=== PATIENT | male | born 1985 | race Two or more races ===

== ENCOUNTER 2016-12-16 21:16 | Emergency (ER) | payer BC ==
[2016-12-16] MEDS ORDERED: Ibuprofen TAB* 400 MG PO ONE (21:48)
[2016-12-16 22:01] VITALS: BP 136/70
--- NOTE | 2016-12-16 22:33 | UC ---
Hand/Wrist HPI - HPI Summary HPI Summary: The patient comes in today for: 1. Right wrist pain: Onset: 3 hours ago. Palliative/provocative: See below Quality: dull Region: distal ulnar at the wrist. Severity: 6/10. Initially, 8/10 Time: Constant. Associated symptoms: Event: While he was curling 65 pounds in his right hand at the gym, he felt something "pop" along the distal ulnar. He was standing. After the "pop" he set the barbell down and walked on the treadmill for 30 minutes. He went home, showered and came here. No Rx or ice applied. With supination, and flexion is the worse movement. Pronation and extension is the least of a problem. No consistent/persistent numbness. Previous problems: None. * - History Of Current Complaint Stated Complaint: RIGHT WRIST INJURY Time Seen by Provider: 12/16/16 21:46 Hx Obtained From: Patient - Allergies/Home Medications Allergies/Adverse Reactions: Allergies Allergy/AdvReac Type Severity Reaction Status Date / Time Penicillins [PCN] Allergy Severe Rash Verified 12/16/16 21:44 Home Medications: Home Medications Nutritional Supplements [Creatine] 750 mg PO DAILY 12/16/16 [History Confirmed 12/16/16] PMH/Surg Hx/FS Hx/Imm Hx Previously Healthy: Yes Endocrine History Of: Denies: Diabetes, Thyroid Disease, Hyperthyroidism, Hypothyroidism, Dyslipidemia Cardiovascular History Of: Denies: Cardiac Disorders, Hypertension, Pacemaker/ICD, Myocardial Infarction , Congestive Heart Failure, Atrial Fibrillation, Deep Vein Thrombosis, Bleeding Disorders Respiratory History Of: Denies: COPD, Asthma, Bronchitis, Pneumonia, Pulmonary Embolism GI/ History Of: Denies: Gastroesophageal Reflux, Ulcer, Gastrointestinal Bleed, Gall Bladder Disease, Kidney Stones, Diverticulitis, Renal Disease, Urosepsis Neurological History Of: Denies: TIA, CVA, Dementia, Seizures, Migraine Psychological History Of: Denies: Anxiety, Depression, Bipolar Disorder, Schizophrenia, Post Traumatic Stress Disorder Cancer History Of: Denies: Lung Cancer, Colorectal Cancer, Breast Cancer, Prostate Cancer, Cervical Cancer Other History Of: Negative For: HIV, Hepatitis B, Hepatitis C, Anticoagulant Therapy - Surgical History Surgical History: Yes Surgery Procedure, Year, and Place: [place], [place], [facility] [place] [facility] [place], [place]1996, [facility] [place] - Family History Known Family History: Positive: Cardiac Disease, Hypertension - Social History Occupation: Employed Full-time Alcohol Use: Rare Substance Use Type: None Smoking Status (MU): Former Smoker Type: Smokeless Tobacco When Did the Patient Quit Smoking/Using Tobacco: 08/03/15 Review of Systems Constitutional: Negative Skin: Negative Eyes: Negative ENT: Negative Respiratory: Negative Cardiovascular: Negative Gastrointestinal: Negative Genitourinary: Negative All Other Systems Reviewed And Are Negative: Yes Physical Exam Triage Information Reviewed: Yes Appearance: Well-Appearing, No Pain Distress, Well-Nourished Vital Signs: Initial Vital Signs Temp 98.8 F 12/16/16 21:42 Pulse 86 12/16/16 21:42 Resp 16 12/16/16 21:42 BP 136/70 12/16/16 21:42 Pulse Ox 99 12/16/16 21:42 Vital Signs Reviewed: Yes Eyes: Positive: Conjunctiva Clear. Negative: Discharge ENT: Positive: Hearing grossly normal. Negative: Pharyngeal erythema, Nasal congestion, Nasal drainage, TM bulging, TM dull, TM red, Tonsillar swelling, Tonsillar exudate Dental: Negative: Gross Decay/Caries @, Dental Fracture @ Neck: Positive: Supple, Nontender, No Lymphadenopathy. Negative: Nuchal Rigidity Respiratory: Positive: Chest non-tender, Lungs clear, No respiratory distress, No accessory muscle use. Negative: Crackles, Wheezing Cardiovascular: Positive: RRR, No Murmur Abdomen Description: Positive: Nontender, No Organomegaly, Soft. Negative: Distended, Guarding Musculoskeletal: Positive: Strength Intact, ROM Intact, No Edema, Other: - Right wrist area: No ecchymosis or edema. NVI. Radial pulses were 2+/2. Color was good. There was tenderness to palpation of the flexor carpi ulnaris tendon area. Neurological: Positive: Alert, Muscle Tone Normal Psychological: Positive: Age Appropriate Behavior, Consolable Skin: Negative: rashes, breakdown Diagnostics - Radiology No standard instances Xray Interpretation: No Acute Changes Radiology Interpretation Completed By: Radiologist Hand/Wrist Course/Dx - Differential Dx/Diagnosis Differential Diagnosis/HQI/PQRI: Fracture, Strain Provider Diagnoses: Right wrist sprain. Tendonitis Discharge - Discharge Plan Condition: Stable Disposition: HOME Patient Education Materials: Wrist Sprain (ED) Referrals: Mendel Wolf MD [Primary Care Provider] - 1 Week (Please see your primary care provider in about one to two weeks to see how well you are doing. If you get worse, please be seen sooner.)
--- NOTE | 2016-12-16 22:43 | RAD ---
Indication: Right wrist pain 3 views of the wrist demonstrates no fracture. No other bone or joint abnormality is identified. IMPRESSION: NO FRACTURE OF THE WRIST IS NOTED.
== END 2016-12-16 23:04 | disposition home or self-care (01) ==
LOC: UCCORT 21:16
DX: S63.501A Unspecified sprain of right wrist, initial encounter (principal); X58.XXXA Exposure to other specified factors, initial encounter; Y93.89 Activity, other specified; M65.841 Other synovitis and tenosynovitis, right hand; Y92.9 Unspecified place or not applicable; Z88.0 Allergy status to penicillin; Z87.891 Personal history of nicotine dependence
CPT/HCPCS: 99213; A9270-GY; G0463

== ENCOUNTER 2017-01-09 08:01 | Day surgery (SDC) | payer BC ==
--- NOTE | 2017-01-02 10:29 | HP ---
PREOPERATIVE HISTORY AND PHYSICAL: DATE OF ADMISSION/SURGERY: 01/09/17 [facility] ATTENDING SURGEON: Juju Hughes MD (DICTATED BY SHIRLEY MURILLO) PROCEDURE: Right wrist arthroscopy, right ulnar shortening osteotomy. CHIEF COMPLAINT: Right wrist pain. HISTORY OF PRESENT ILLNESS: This is a 31-year-old male who complains of pain in his right wrist on the ulnar aspect since the middle of December 2016. He was doing barbell curls when he felt an odd shifting sensation in the wrist. He has had pain since. He does not recall any specific acute injury recently or remotely. He was seen by for his right wrist pain and an x-ray and an MRI were ordered. The MRI showed a volar radial wrist ganglion as well as a TFCC tear. It also appears that there is ulnar impaction syndrome and the patient has an ulnar positive variant of at least 2 mm. The patient has tried bracing and did not get any relief. He was offered cortisone injection, but declined. He is looking for a more permanent solution to this problem and has consented to proceed with surgical intervention. PAST MEDICAL HISTORY: Unremarkable. PAST SURGICAL HISTORY: 1. Inguinal hernia repair. 2. Umbilical hernia repair. CURRENT MEDICATIONS: A multivitamin daily. ALLERGIES: PENICILLIN, reaction unknown. FAMILY MEDICAL HISTORY: Noncontributory. SOCIAL HISTORY: The patient is employed by [employer] in [place]. He reports being a former smoker. He quit approximately 10 years ago. Prior to that, he smoked half a pack per day for 8 years. He denies recreational drug use. He does admit to alcohol use on occasion. REVIEW OF SYSTEMS: Negative for fevers, chills or night sweats. No known anesthesia problems. HEENT: Negative for headache, lightheadedness or syncopal episodes. Integumentary: Negative for abrasions, lesions or open wounds. Cardiothoracic: Negative for hypertension, chest pain, palpitations or edema. Pulmonary: Negative for shortness of breath with exertion, chronic cough , COPD. GI: Negative for nausea, vomiting, diarrhea, constipation, or GERD. : Negative for nocturia, urinary frequency, urgency, history of UTIs or kidney problems. Musculoskeletal: Positive for current complaints. Negative for chronic or intermittent back pain or history of fractures. Neurologic: Negative for paresthesias, numbness, history of seizure, stroke or epilepsy. Endocrine: Negative for diabetes and thyroid issues. Hematologic: Negative for easy bruising, anemia, excessive bleeding or history of DVT. Infectious Disease: Negative for history of MRSA, hepatitis C, or HIV. PHYSICAL EXAMINATION GENERAL: Well-developed, well-nourished 31-year-old male in no acute distress. VITAL SIGNS: Height 5 feet 9 inches, weight 180 pounds, pulse 85, blood pressure 120/70. HEENT: Normocephalic, atraumatic. Pupils are equal, round and reactive to light and accommodation. Extraocular movements are intact. NECK: Supple. No palpable lymph nodes. Throat is clear. PULMONARY: Lungs are clear to auscultation bilaterally. No wheezes, rales, or rhonchi. CARDIOVASCULAR: Regular rate and rhythm S1, S2. No murmurs, rubs, or gallops. No edema. ABDOMEN: Positive bowel sounds. Soft, nontender. NEUROLOGIC: Alert and oriented x3. Cranial nerves II through XII are intact. Sensation is intact to light touch. PERIPHERAL VASCULAR: 2+ radial and ulnar pulses. Negative Graham test. MUSCULOSKELETAL: On exam of his right wrist, he has tenderness on the ulnar aspect of the wrist just distal to the ulna, and he has pain there with motion. Most of the pain is with supination and resisting supination. He lacks a little bit of flexion and extension compared to his other wrist. He has full ulnar deviation with some pain with passive ulnar deviation. He has full supination and pronation. He can make a full fist. Skin is intact. Neurovascular function is intact. IMAGING STUDIES: X-rays are negative for fracture, but show ulnar positive variants. MRI of the right wrist shows a tear in the TFCC and a ganglion cyst on the volar radial aspect of the wrist. MRI also shows signs of ulnar impaction syndrome. IMPRESSION: Right TFCC tear, ulnar impaction syndrome, and ganglion cyst. PLAN: The patient is scheduled to undergo a right wrist arthroscopy and a right ulnar shortening osteotomy with Dr. Hughes on 01/09/17. He will return to the office 10 to 14 days postop for followup and suture removal. A prescription for [place] was e-scribed to the patient's pharmacy for postoperative pain management. SHIRLEY MURILLO [id number]/[facility] #: [id number] REYNALDO
[~2017-01-09 08:01] MED LIST: Buffered Lidocaine 0.9% SYRIN* 5 ML/SYR SYRINGE INTRADERM ONE; celeCOXIB CAP* 200 MG PO ONE
[2017-01-09] MEDS ORDERED: Clindamycin 900 MG IVPREMIX(* 900 MG/50 ML SDV IV ONE (08:20)
[2017-01-09] MEDS ORDERED: celeCOXIB CAP* 100 MG ONE (08:20)
[2017-01-09] MEDS ORDERED: Buffered Lidocaine 0.9% SYRIN* 5 ML/SYR SYRINGE ONE (08:20)
[2017-01-09] MEDS ORDERED: Bupivacaine 0.5% SDV PF* 30 ML VIAL ONE (08:49)
[2017-01-09] MEDS ORDERED: Bupivacaine 0.5% W/EPI SDV* 30 ML VIAL ONE (09:03)
[2017-01-09] MEDS ORDERED: fentaNYL* 50 MCG/ML 2 ML VIAL (100 MCG VIAL) ONE (09:29)
[2017-01-09] MEDS ORDERED: Midazolam* 1 MG/ML 5 ML VIAL (5 MG) ONE (09:34)
[2017-01-09 11:54] VITALS: BP 117/55
--- NOTE | 2017-01-09 18:24 | RAD ---
INDICATION: Right ulna shortening osteotomy. COMPARISON: Correlation is made with a prior MRI of the right wrist from December 24, 2016. TECHNIQUE: 58 seconds of intermittent fluoroscopic guidance were provided and 11 spot films of the right forearm were obtained in the operating room. FINDINGS: The films demonstrate a shortening osteotomy of the mid ulna transfixed with a surgical plate and multiple surgical screws. The bones are in normal alignment. IMPRESSION: INTRAOPERATIVE CONTROL FILMS. CPT II Codes: 6045F
--- NOTE | 2017-01-10 00:11 | OP ---
CC: Juju Hughes MD OPERATIVE NOTE: DATE OF OPERATION: 01/09/17 DATE OF : 83 SURGEON: Juju Hughes MD UTILIZATION MANAGEMENT MANAGER: SHIRLEY Dawn ANESTHESIA: Axillary block. PRE-OP DIAGNOSIS: TFCC tear of the right wrist with ulnar impaction syndrome. POST-OP DIAGNOSIS: TFCC tear of the right wrist with ulnar impaction syndrome. OPERATIVE PROCEDURE: Right wrist arthroscopy, TFCC debridement, and ulnar shortening osteotomy. ESTIMATED BLOOD LOSS: Zero. TOURNIQUET TIME: About an hour. INDICATION FOR PROCEDURE: Rene is a 31-year-old male, who has ulnar-sided wrist pain without a sp ecific injury. He does a lot of weightlifting. MRI shows TFCC tear. He presents for arthroscopic debridement and ulnar shortening osteotomy. He has about 3 mm ulnar positive variants on his x-ray. DESCRIPTION OF PROCEDURE: The patient was brought to the operating room, was given an axillary bloc k anesthetic, and a tourniquet was placed around his right upper arm. The skin of his right upper e xtremity was prepped and draped in the usual sterile fashion. Upper extremity was exsanguinated and the tourniquet elevated to 250 mmHg. A 25-gauge needle was used to inject about 8 cc of Marcaine i nto the radiocarpal joint. There was return of the Marcaine and joint fluid indicating that the sca pholunate and lunotriquetral ligaments were intact. A stab incision was made just distal to Deb' s tubercle and this was after the hand was placed in 10 pounds of traction. We placed the arthrosco pe in the radiocarpal joint. The articular surface of the radius was intact. The scaphoid and yamilet te articular surfaces were intact. There was a negative drive-through sign at the scapholunate liga ment. There was a central tear of the TFCC. A second stab incision was made in the 4-5 interval on the ulnar aspect of the wrist and a 2.0 Gator shaver was placed in the joint and under direct visua lization, the synovitis and the TFCC tear were debrided. A mid carpal portal was then created and t hrough this, we could see again that the scapholunate ligament was intact and the articular surfaces of all of the mid carpal bones were normal. The arthroscopy instruments were removed and the wound s were closed with 4-0 nylon suture. Next, an ulnar longitudinal incision was made. We dissected s harply between the extensor and flexor musculature down to the periosteum of the bone. A plate from the [employer] ulnar shortening set was secured with 1 distal and 3 proximal screws. It was decided pr eoperatively to shorten the bone 4 mm. Two guide pins were placed through the proper guide and then the 4 mm cutting guide was secured with a clamp to the lateral aspect of the plate and the first cu t was made. The second cutting guide was then secured to the plate and the second cut was made socorro ving 4 mm of bone. The sliding screw was then loosened and with the appropriate compression guide s ecured with a K-wire into the distal fragment, the 2 bones were opposed and the sliding screw was th en tightened. The drill guide for the oblique lag screw was placed over the pins and the lag hole w as drilled and measured for an 18-mm screw. The screw was placed and this gave excellent apposition of the 2 bone fragments. We then checked on the C- arm that the joint had indeed been leveled and the 2 additional closure screws were placed in the distal aspect of the plate. The wound was irriga maria victoria and the fascia between the flexor and extensor compartments was closed with 3-0 Polysorb suture, subcutaneous tissue closed with 3-0 Polysorb, and skin with skin alfredito. The wounds were dressed with Xeroform, 4x4, Webril, and a volar splint. The patient tolerated the procedure well and was br ought to the recovery room in good condition. [id number]/[facility] #: [id number]
== END 2017-01-09 12:06 | disposition home or self-care (01) ==
LOC: OREAST 08:01
PROVIDERS: ATTEND Orthopaedic Surgery
DX: S63.591A Other specified sprain of right wrist, initial encounter (principal); M24.831 Other specific joint derangements of right wrist, not elsewhere classified; M67.431 Ganglion, right wrist; Z88.0 Allergy status to penicillin; X58.XXXA Exposure to other specified factors, initial encounter; Y92.9 Unspecified place or not applicable
CPT/HCPCS: 76000; 88304; 88311; A9270-GY; C1713; C1776; J2250; J3010

== ENCOUNTER 2017-07-11 07:55 | Emergency (ER) | payer BC ==
[2017-07-11 08:01] VITALS: BP 117/63
--- NOTE | 2017-07-11 08:15 | ED ---
Throat Pain/Nasal Congestion - HPI Summary HPI Summary: 32 yr old male with 2 weeks of frontal and maxillary sinus pressure with post nasal drip, coughing worse at night. Denies fever. Denies SOB. Denies dizziness. No CP. His symptoms are moderate. He states he is not a smoker, and that he quit ten years ago. He denies sputum production. - History of Current Complaint Chief Complaint: UCRespiratory Time Seen by Provider: 07/11/17 08:03 - Allergies/Home Medications Allergies/Adverse Reactions: Allergies Allergy/AdvReac Type Severity Reaction Status Date / Time Penicillins [PCN] Allergy Severe Rash Verified 07/11/17 08:01 PMH/Surg Hx/FS Hx/Imm Hx Endocrine/Hematology History: Denies: Hx Anticoagulant Therapy, Hx Diabetes, Hx Thyroid Disease Cardiovascular History: Denies: Hx Congestive Heart Failure, Hx Deep Vein Thrombosis, Hx Hypertension , Hx Myocardial Infarction, Hx Pacemaker/ICD, Other Cardiovascular Problems/ Disorders Respiratory History: Denies: Hx Asthma, Hx Chronic Obstructive Pulmonary Disease (COPD), Hx Lung Cancer, Hx Pneumonia, Hx Pulmonary Embolism, Other Respiratory Problems/ Disorders GI History: Denies: Hx Gall Bladder Disease, Hx Gastrointestinal Bleed, Hx Ulcer, Hx Urosepsis, Other GI Disorders History: Denies: Hx Kidney Stones, Hx Renal Disease Sensory History: Reports: Hx Contacts or Glasses - glasses Denies: Hx Hearing Aid Opthamlomology History: Reports: Hx Contacts or Glasses - glasses Neurological History: Denies: Hx Dementia, Hx Migraine, Hx Seizures, Hx Transient Ischemic Attacks (TIA), Other Neuro Impairments/Disorders Psychiatric History: Reports: Hx Anxiety - not now, Hx Depression - not now Denies: Hx Panic Disorder, Hx Schizophrenia, Hx Bipolar Disorder - Surgical History Surgery Procedure, Year, and Place: [place] [facility] [facility] [place], [place] [facility] [place] Hx Anesthesia Reactions: No Infectious Disease History: No Infectious Disease History: Denies: Hx Hepatitis, Hx Human Immunodeficiency Virus (HIV), Traveled Outside the [place] in Last 30 Days - Family History Known Family History: Positive: Cardiac Disease, Hypertension - Social History Alcohol Use: Occasionally Alcohol Amount: 1-2 per week Substance Use Type: Reports: None Smoking Status (MU): Former Smoker Type: Smokeless Tobacco Amount Used/How Often: 1/2 pack for 10 years Review of Systems Negative: Fever, Chills Positive: Nasal Discharge, Other - sinus pressure Positive: Cough All Other Systems Reviewed And Are Negative: Yes Physical Exam Triage Information Reviewed: Yes Vital Signs On Initial Exam: Initial Vitals Temp Pulse Resp BP Pulse Ox 98.6 F 77 16 117/63 99 07/11/17 07:58 07/11/17 07:58 07/11/17 07:58 07/11/17 07:58 07/11/17 07:58 Vital Signs Reviewed: Yes Appearance: Positive: Well-Appearing, No Pain Distress Skin: Positive: Warm, Skin Color Reflects Adequate Perfusion Head/Face: Positive: Normal Head/Face Inspection Eyes: Positive: EOMI ENT: Positive: Pharynx normal, Nasal congestion, TMs normal, Other - tenderness on percussion of bilateral maxillary sinus Neck: Positive: Nontender Respiratory/Lung Sounds: Positive: Clear to Auscultation, Breath Sounds Present Cardiovascular: Positive: RRR. Negative: Murmur Abdomen Description: Positive: Nontender Musculoskeletal: Positive: Strength/ROM Intact Neurological: Positive: Sensory/Motor Intact, Alert, Oriented to Person Place, Time, CN Intact II-III, Normal Gait, Speech Normal Psychiatric: Positive: Normal Diagnostics - Vital Signs Vital Signs Temp Pulse Resp BP Pulse Ox 07/11/17 07:58 98.6 F 77 16 117/63 99 - Laboratory Lab Statement: Any lab studies that have been ordered have been reviewed, and results considered in the medical decision making process. EENT Course/Dx - Course Course Of Treatment: 32 yr old with sinusitis. Rx doxycyline as he has allergies to pencillins. - Diagnoses Provider Diagnoses: Sinusitis Discharge - Discharge Plan Condition: Good Disposition: HOME Prescriptions: Doxycycline (Monohydrate) [Doxycycline Monohydrate] 100 mg PO BID #[id number] Patient Education Materials: Sinusitis (ED) Referrals: Mendel Wolf MD [Primary Care Provider] - 2 Days
== END 2017-07-11 08:19 | disposition home or self-care (01) ==
LOC: UCCORT 07:55
DX: J32.9 Chronic sinusitis, unspecified (principal); Z88.0 Allergy status to penicillin; Z87.891 Personal history of nicotine dependence
CPT/HCPCS: 99212; G0463